=== PATIENT | female | born 1985 | race Two or more races ===

== ENCOUNTER 2020-07-25 14:14 | Emergency (ER) | payer OTHER ==
[~2020-07-25] VITALS: Ht 157.5 cm; Wt 54.4 kg
[2020-07-25 14:35] VITALS: BP 146/89
--- NOTE | 2020-07-25 14:39 | NUR ---
patient left via ambulatory accompanied by [employer] in no distress.
== END 2020-07-25 14:39 ==
LOC: ER 14:17
DX: S01.81XA Laceration without foreign body of other part of head, initial encounter (principal); F25.9 Schizoaffective disorder, unspecified; Z60.2 Problems related to living alone; X58.XXXA Exposure to other specified factors, initial encounter; Y93.89 Activity, other specified; Y92.89 Other specified places as the place of occurrence of the external cause; Y99.8 Other external cause status